=== PATIENT | female | born 1985 | race Caucasian/White ===

== ENCOUNTER 2019-03-23 10:40 | Day surgery (SDC) | payer OTHER ==
[~2019-03-23] VITALS: Ht 162.6 cm; Wt 64.8 kg
[2019-03-23] MEDS: IV RINGERS,LACTATED 1000ML 1,000 ML IV SCH ×2 (07:00→14:42)
[~2019-03-23 10:40] MED LIST: BUPIVAC MPF-EPI 0.5%-1:200000 30 ML VIAL. ONE; CEPH-264 PO; CEPH500T PO; DIPH25CA58 PO; HYDR-3164 PO; HYDROmorphone 2 MG/ML VIAL IV PRN; IOHEXOL 300 MG/ML 50 ML VIAL. ONE; IRON PO; LIDOCAINE 1% PF 2 ML VIAL. ID PRN; METR500T PO; MORPHINE SULFATE 2 MG/ML VIAL. IV PRN; ONDA4TAB12 PO; ONDANSETRON PF 4 MG/2 ML VIAL. IV PRN; ORPH100T PO; PROCHLORPERAZINE 10 MG/2 ML VIAL. IV PRN; SURGICEL HEMOSTAT 4X8 EACH. ONE; fentaNYL PF VIAL 100 MCG/2 ML VIAL IV PRN
[2019-03-23] MEDS ORDERED: MIDAZOLAM HCL/PF 2 MG/2 ML VIAL. ONE (11:19)
[2019-03-23] MEDS ORDERED: PROPOFOL 20 ML IV ONE (11:19)
[2019-03-23] MEDS ORDERED: DEXAMETHASONE SOD PHOS 4 MG/ML VIAL ONE ×2 (11:19)
[2019-03-23] MEDS ORDERED: ONDANSETRON PF 4 MG/2 ML VIAL. ONE (11:19)
[2019-03-23] MEDS ORDERED: ROCURONIUM 50 MG/5 ML VIAL. ONE (11:19)
[2019-03-23] MEDS ORDERED: fentaNYL PF VIAL 100 MCG/2 ML VIAL ONE (11:19)
[2019-03-23] MEDS ORDERED: LIDOCAINE 2% PF 5 ML VIAL. ONE (11:19)
[2019-03-23 12:54] LABS: U PREG PATIENT NEGATIVE (NEG)
[2019-03-23] MEDS ORDERED: NEOSTIGMINE METHYLSULFATE 5 MG/5 ML SYRINGE. ONE (13:21)
[2019-03-23] MEDS ORDERED: KETOROLAC 30 MG/ML INJ FOR OR. INJ ONE (13:21)
[2019-03-23] MEDS ORDERED: GLYCOPYRROLATE 1 MG/5 ML VIAL. ONE (13:21)
--- NOTE | 2019-03-23 14:02 | PDOC4 ---
Operative Note Operative Note Operative Note: Preoperative Diagnosis: Symptomatic cholelithiasis Postoperative Diagnosis: Same Procedure: Laparoscopic cholecystectomy with intraoperative cholangiogram Surgeons: Bradley Drupal Programmer: Lexy JACOBSON Anesthesia: Gen. Estimated Blood Loss: 10 mL Specimen: Gallbladder to pathology Drains: None Complications: None Indications: The patient is a 33-year-old female who is been experiencing recurrent upper abdominal pain consistent with biliary colic. Her evaluation included a CT scan which showed gallstones. In addition there were several low- density lesions within the spleen which could not be fully characterized. Due to her persistent symptoms she would like to proceed with treatment for the gallbladder and we will plan on further evaluation of the spleen or possible surveillance for the future. The risks of surgery were discussed which include bleeding, infection, bile duct injury, bile leak, pain, the potential for additional surgeries or procedures. The patient understands and would like to proceed. Description: The patient was taken to the operating room and laid supine on the operating table. General anesthesia was performed. The abdomen was prepped wit h ChloraPrep and draped in a standard surgical fashion. A small infraumbilical incision was made with a scalpel. The Veress needle was then inserted and a pneumoperitoneum was then created. A 5 mm trocar was then inserted and the laparoscope was introduced. In the upper midabdomen a 5 mm trocar was inserted and in the right upper quadrant two 2.3 mm mini lap graspers were inserted. We were able to visualize the spleen laparoscopically. The anterior surface of the spleen appeared fairly unremarkable. Spleen was normal in size with no visualized masses. Pictures were taken for the record. It seems most likely that the low-density lesions seen on CAT scan were cysts however this will be followed. The gallbladder was retracted cephalad. The cystic duct was dissected free from surrounding tissues. One clip was placed on the duct near the gallbladder junction. An opening was made in the duct and a cholangiocatheter placed within and secured with a clip. Using contrast dye and fluoroscopy an intraoperative cholangiogram was performed that appeared unremarkable. The clip and catheter were then withdrawn. Three clips were placed on the cystic duct and it was divided. The cystic artery was then identified, dissected free, doubly clipped and divided as well. The gallbladder was then mobilized away from the liver with cautery. The umbilical 5 millimeter trocar was exchanged for an 11 millimeter trocar. The gallbladder was then placed in an endoscopic bag and extracted at the umbilical trocar site. The fas ally there was closed with an 0 Vicryl suture. All blood and irrigation fluid was suctioned and hemostasis was good. The remaining ports were removed and the pneumoperitoneum was relieved. The skin incisions were injected with half percent Marcaine with epinephrine, and all were closed using 4-0 Monocryl suture. Steri-Strips and dressings were then applied. The patient tolerated the procedure well and was sent to the recovery room in stable condition. At the end of the case all counts were correct. ILYA KILLIAN MD Mar 23, 2019 14:02
--- NOTE | 2019-03-23 14:05 | DISCH ---
DISCHARGE INSTRUCTIONS Condition on Discharge Condition on Discharge: Stable Activity After Discharge Activity Instructions for Disc: Other, see below (no lifting over 20 lbs X 2 weeks) Diet after Discharge Diet after Discharge: Regular Wound Incision Care Wound/Incision Care: Other, see below (may remove band aids tomorrow and shower) Follow-Up Follow up with: Dr Killian in office in 2 weeks, call for appt [phone] ILYA KILLIAN MD Mar 23, 2019 14:05
--- NOTE | 2019-03-23 14:06 | RAD ---
Intraoperative cholangiogram, 03/23/2019: HISTORY: Cholecystectomy 2 spot films from surgery are presented for review. Contrast has been injected into the cystic duct remnant. 0.11 minutes of fluoroscopy time was utilized. There is good flow contrast into the duodenum. No filling defect is seen in the common duct to suggest a retained calculus. The visualized intrahepatic ducts are unremarkable. No contrast extravasation is seen. IMPRESSION: No significant abnormality is detected. Electronically signed by: Brando Magana MD (03/23/2019 2:03 PM) [facility]
[2019-03-23] MEDS: fentaNYL PF VIAL 100 MCG/2 ML VIAL IV PRN ×2 (14:40→15:17)
[2019-03-23] MEDS ORDERED: oxyCODONE/APAP 5/325 1 TAB TABLET PO ONE (14:45)
[2019-03-23] MEDS ORDERED: OXYC1TAB15 PO (14:48)
[2019-03-23 15:49] VITALS: BP 104/64
== END 2019-03-23 17:41 | disposition home or self-care (01) ==
LOC: SURG 10:40
PROVIDERS: ATTEND Surgery
DX: K80.20 Calculus of gallbladder without cholecystitis without obstruction (principal)
CPT/HCPCS: 47563; 74300; 81025; A7015; J0780; J1100; J1885; J1956; J2001; J2250; J2405; J2704; J2710; J3010; J3490; J7030; J7120; Q9967